=== PATIENT | male | born 1970 | race African-American/Black ===

== ENCOUNTER 2016-12-03 17:27 | Emergency (ER) | payer SELFPAY ==
--- NOTE | ~2016-12-03 | CT2 ---
[facility] A Service of [facility] RADIOLOGY TEXT RESULTS PATIENT: BUNNY MARCUS [facility] [id number] : [birth year] UNIT #: [id number] AGE: [address]: Nickolas Smith MD SEX: M ORDER DR: [id number] [facility] [address] [place] [address] [place], [place] [address] [id number] MR#: [id number] #: [id number] NAME: BUNNY MARCUS. : 1970 SEX: M STUDY DATE/TIME: 12/03/2016 20:33 UNIT: [facility] ROOM: STUDY DESCRIPTION: CT Abd and Pelv W Cont Attending Physician: Nickolas mSith M.D. Ordering Physician: Cj Jones D.O. Primary Care Physician: No Primary Care Physician MEDICAL IMAGING REPORT This report is preliminary unless electronic signature is present EXAM CT abdomen and pelvis with oral and IV contrast HISTORY Periumbilical pain. Blood in stool since yesterday. FINDINGS CT abdomen and pelvis was performed with oral and IV contrast. This CT exam was performed with one or more of the following radiation dose reduction techniques: automatic control, adjustment of mA and/or kV according to patient size, and iterative reconstruction. CT ABDOMEN: The liver, gallbladder, spleen, pancreas, kidneys, and adrenal glands are normal. Normal caliber abdominal aorta. No bowel dilatation. No adenopathy. CT PELVIS: No free fluid. No inflammatory changes. Normal appendix. No bowel dilatation. IMPRESSION Negative CT abdomen and pelvis. No urinary or bowel obstruction. Normal appendix. Dictated by... Jean-Pierre Thomas M.D. THIS IS AN ELECTRONICALLY VERIFIED REPORT Jean-Pierre Thomas M.D. at 12/04/2016 1:13 PM DFL/rnr TD: 12/04/2016 04:01 JOB #: [id number] [facility] A Service [facility] RADIOLOGY TEXT RESULTS PATIENT: BUNNY MARCUS LOCATION: [facility] #: [id number] : [birth year] UNIT #: [id number] AGE: [address]: Nickolas Smith MD SEX: M ORDER DR: MEDICAL IMAGING REPORT Page 1 of 1 COPY
[~2016-12-03 17:27] MED LIST: BENTYL10 MG PO; FLEXERIL10 MG PO; KEFLEX PO; LORTAB 10-5001 EACH PO; LORTAB 5/500 TA1 TA2 PO; PRILOSEC2.5 MG PO; PRILOSEC20 M1 PO; ULTRAM PO
[2016-12-03 19:31] LABS: BASOPHIL# 0.1 X10e3 (0-0.3); EOSINOPHIL# 0.2 X10e3 (0-0.7); EOSINOPHIL% 2.4 % (0.0-7.0); HEMATOCRIT 44.9 % (38.0-50.0); HEMOGLOBIN 14.6 gm/dL (13.0-16.0); LYMPHOCYTE# 2.7 X10e3 (1.0-3.5); LYMPHOCYTE% 31.7 % (17.0-45.0); MEAN CELL VOLUME 90.5 FL (83-96); MEAN CORPUSCULAR HEMOGLOBIN 29.4 PG (28-34); MEAN CORPUSCULAR HGB CONC 32.5 g/dL (30-36); MEAN PLATELET VOLUME 7.3 FL (6.5-11.5); MONOCYTE# 0.6 X10e3 (0-1.0); MONOCYTE% 7.2 % (3.0-12.0); NEUTROPHIL# 4.9 X10e3 (1.5-7.1); NEUTROPHIL% 57.7 % (40-75); PLATELET COUNT 220 X10e3 (140-420); RED BLOOD COUNT 4.97 X10e (3.90-5.60); RED CELL DISTRIBUTION WIDTH 14.1 % (11.0-15.5); WHITE BLOOD COUNT 8.5 X10e3 (4.0-10.5)
[2016-12-03 19:36] LABS: DIFF IND NO
[2016-12-03 19:45] LABS: INR 1.1; PARTIAL THROMBOPLASTIN TIME 25.6 SECONDS (23.5-31.3); PROTHROMBIN TIME (PATIENT) 11.4 SECONDS (10.0-11.7)
[2016-12-03 19:55] LABS: ALBUMIN SERUM 4.1 g/dL (3.5-5.0); BILIRUBIN, DIRECT 0.1 mg/dL (0.0-0.2); BILIRUBIN,INDIRECT 1.2 mg/dL (0.0-0.9); BILIRUBIN,TOTAL 1.3 mg/dL (0.2-2.0); CALCIUM SERUM 8.8 mg/dL (8.4-10.2); CREATININE SERUM 1.2 mg/dL (0.6-1.4); GLOM FILT RATE Estimated 83.6 mL/min (>60); POTASSIUM 3.6 mmol/L (3.5-5.1); PROTEIN TOTAL SERUM 7.6 g/dL (6.0-8.3)
[2016-12-03 19:57] LABS: URINE SOURCE CLEAN CATCH
[2016-12-03 20:06] LABS: URINE APPEARANCE CLEAR; URINE BILIRUBIN NEG (NEG); URINE BLOOD NEG (NEG); URINE COLOR YELLOW; URINE GLUCOSE NEG (NEG); URINE KETONE NEG (NEG); URINE LEUKOCYTE ESTERASE NEG (NEG); URINE NITRATE NEG (NEG); URINE PROTEIN NEG (NEG); URINE SPECIFIC GRAVITY 1.018 (1.003-1.035)
[2016-12-03 20:09] LABS: CULTURE INDICATED? NO
== END 2016-12-03 22:22 | disposition home or self-care (01) ==
LOC: CED 17:27
PROVIDERS: Emergency Medicine
DX: R10.32 Left lower quadrant pain (principal); J45.909 Unspecified asthma, uncomplicated; F17.200 Nicotine dependence, unspecified, uncomplicated
CPT/HCPCS: 36415; 74177; 80048; 80076; 81003; 83690; 85025; 85610; 85730; 96360; 96372; 99284; J0500; Q9967